=== PATIENT | female | born 1970 | race Caucasian/White ===

== ENCOUNTER → 2016-08-29 | Outpatient (CLI) | payer OTHER ==
--- NOTE | 2016-08-29 14:36 | MA ---
Diagnostic Digital Mammogram Left Breast With iCAD Analysis Reason for Examination: Evaluate left breast microcalcifications identified on the baseline screening tomographic assessment July 12, 2016. Technique: True lateral and craniocaudal magnification views are obtained. Also, a true lateral is pe rformed. The examination is processed by the iCAD computer-aided detection system. Findings: Magnification views demonstrate numerous microcalcifications in the upper-outer left breast . On the true lateral view, many show a curvilinear characterization suggesting benign milk of calciu m calcification. No soft tissue mass is seen associated with the microcalcifications. Impression: Probably benign left breast microcalcifications, BI-RADS 3. Recommendation: Six-month unilateral mammographic follow up for continued surveillance of the microca lcifications. Notation: The patient is scheduled today for targeted left breast ultrasound to evaluate nodular asym metry in the upper-outer posterior left breast. A verbal report was given to the patient. [facility], [facility] with send a result letter.
--- NOTE | 2016-08-29 15:10 | US ---
Left Breast Ultrasound History: Evaluate nodular asymmetry in the posterior upper left breast. Technique: Longitudinal and transverse images were obtained utilizing a 15-MHz transducer. Findings: At the 2 o'clock position 8 cm from the nipple, there is a large simple cyst, measuring 3. 0 x 1.0 x 3.2 cm. No suspicious solid abnormality is identified. Prominent fibroglandular elements are seen. Scattered microcalcifications are noted, some of which appear to be associated with mildly prominent ducts. Impression: Benign sonography, BI-RADS 2. Recommendation: Continued clinical follow up. A six-month mammographic follow up has been suggested for surveillance of previously detailed microcalcifications. Findings and follow-up recommendations were reviewed with the patient in detail. [facility] will send a result letter to the patient.
== END ==
LOC: FIMAGING 13:28
PROVIDERS: ATTEND Obstetrics & Gynecology
DX: Z12.39 Encounter for other screening for malignant neoplasm of breast (principal); R92.0 Mammographic microcalcification found on diagnostic imaging of breast
CPT/HCPCS: G0206

== ENCOUNTER → 2017-04-02 | Outpatient (CLI) | payer OTHER | LOC: FIMAGING 12:53 | DX: R92.0 Mammographic microcalcification found on diagnostic imaging of breast (principal) | CPT/HCPCS: G0206 ==